=== PATIENT | female | born 1990 | race African-American/Black ===

== ENCOUNTER → 2016-08-25 | Outpatient (CLI) | payer OTHER ==
[~2016-08-25] MED LIST: ACET50TA PO; COLA100C PO; IBUP-1114 PO; IRON65TA PO; METHACHOLINE KIT (J7674) INH ONE; MOM30SS PO; PRE-TAB3 PO
== END ==
LOC: M CARPUL 08:12
PROVIDERS: ATTEND Nurse Practitioner Adult Health
DX: R06.02 Shortness of breath (principal)

== ENCOUNTER 2016-09-30 06:55 | Emergency (ER) | payer OTHER ==
[~2016-09-30 06:55] MED LIST changes: -METHACHOLINE KIT (J7674) INH ONE
--- NOTE | 2016-09-30 07:51 | REP ---
Clinical: Acute cough and fever . Comparison: None . Technique: PA and lateral. Findings: The mediastinum and cardiac silhouette are normal. The lung snowden are clear and without acute consolidation, effusion, or pneumothorax. The skeletal structures are intact and normal. Impression: 1. No acute cardiopulmonary process. Signed by Shan Avelar MD 09/30/2016 07:42 A
--- NOTE | 2016-09-30 08:11 | EDDOCDS ---
Nurse's Notes [facility] Name: Perri King Age: 25 yrs Sex: Female : 1990 Arrival Date: 09/30/2016 Time: 06:55 Bed I5 / M5 Private MD: Diagnosis: Fever presenting with conditions classified elsewhere-by history;Acute upper respiratory infection, unspecified Presentation: 09/30 07:00 Presenting complaint: Patient states: Body ache, headache, fatigue and cough began mlb1 yesterday. This patient has no additional risk factors. Adult Sepsis Screening: The patient does not have new or worsening altered mentation. Patient's respiratory rate is less than 22. Systolic blood pressure is greater than 100. Patient has a qSOFA score of 0- Negative Sepsis Screen. Suicide/Homicide risk assessment- the patient denies having any suicidal and/or homicidal ideations and does not present with any other emotional, behavioral or mental health complaints. 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 Transition of care: patient was not received from another setting of care. 07:00 Acuity: JERZY Level 4 mlb1 07:00 Method Of Arrival: Walkin/Carried/Asstd mlb1 Triage Assessment: 07:04 Headache History: This patient does not have a history of previous headaches. General: mlb1 Appears in no apparent distress, Behavior is appropriate for age, cooperative. Pain: Location: "all over" Pain currently is 5 out of 10 on a pain scale. Pain began 1 day ago. HIV screening NA for this visit Offered previously. Neurological: No deficits noted. 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 albuterol sulfate 2.5 mg /3 mL (0.083 %) Nebulizer nebu twice a day - PMHx: Asthma; - PSHx: none; - Social history: Smoking status: Patient states was never smoker of tobacco. No barriers to communication noted, The patient speaks fluent Portuguese, Speaks appropriately for age. - Family history: Not pertinent. - : The pt / caregiver states he / she is not on anticoagulants. Home medication list is obtained from the patient. - Exposure Risk Screening:: None identified. Screenin:09 Screening information is obtained from the patient. Fall risk: No risks identified. jc4 Assistance ADL's: requires no assistance with activities of daily living. Abuse/DV Screen: The patient / caregiver reports he/she is: not in a situation that causes fear, pain or injury. Nutritional screening: No deficits noted. Advance Directives: Currently, there is no health care proxy. There is no active DNR order. There is no living will. There is no Power of [employer] Sprayer. home support is adequate. Assessment: 08:08 General: Appears in no apparent distress. Pain: Pain currently is 5 out of 10 on a pain jc4 scale. Neurological: Level of Consciousness is awake, alert, Oriented to person, place, time. Respiratory: Airway is patent Respiratory effort is even, unlabored, Respiratory pattern is regular, symmetrical. Derm: Skin is pink, warm & dry. Vital Signs: 07:04 BP 115 / 74; Pulse 106; Resp 16; Temp 98.1(TE); Pulse Ox 97% on R/A; Weight 68.49 kg mlb1 (R); Height 5 ft. 6 in. (167.64 cm) (R); Pain 5/10; 08:10 BP 117 / 59; Pulse 108; Resp 20; Temp 98.8(O); Pulse Ox 98% on R/A; Pain 5/10; jc4 07:04 Body Mass Index 24.37 (68.49 kg, 167.64 cm) [facility] Vitals: 07:04 Log In Time: September 30, 2016 at 06:55. [facility] ED Course: 06:56 Patient visited by Arthur Emmanuel Reg. pm4 06:56 Patient moved to Waiting pm4 07:00 Patient visited by Giuliano Stewart, NINA. mlb1 07:03 Triage Initiated mlb1 07:05 Patient visited by Giuliano Stewart, RN. mlb1 07:05 Maria Dos Santos, RN is Primary Nurse. mlb1 07:05 Delores Funez,NINA is Primary Nurse. mlb1 07:05 Patient moved to I5 / M5 mlb1 07:06 Shanique Payne PA-C is PHCP. dt4 07:06 Ulysses Hoffman MD is Attending Physician. dt4 07:06 Patient visited by Shanique Payne PA-C. dt4 07:20 -Influenza A&B Rapid Antigen - Nose Sent. jc4 08:08 The patient / caregiver is instructed regarding the plan of care and ED course. jc4 08:09 No IV's were initiated during this patient's visit. No procedures done that require jc4 assistance. Order Results: Lab Order: -Influenza A&B Rapid Antigen - Nose; SPEC'M 09/30/16 07:16 Test: INFLUENZA A RAPID SCR by ICA; Value: INFLUENZA A RESULTS NEGATIVE; Status: F Test: INFLUENZA A RAPID SCR by ICA; Value: Comments:; Status: F Test: INFLUENZA B RAPID SCR by ICA; Value: INFLUENZA B RESULTS NEGATIVE; Status: F Test Note: ; The Influenza test is a direct rapid immunoassay for the qualitative detection of Influenza viral antigen. Cell culture (Viral Culture) testing should be considered to confirm NEGATIVE results and to assist in detecting other viruses that can provide similar clinical symptoms. Please contact the lab within 24 hours ([phone]) if confirmatory testing is desired. Outcome: 07:49 Discharge ordered by Provider. dt4 08:09 Discharge Assessment: Patient awake, alert and oriented x 3. No cognitive and/or jc4 functional deficits noted. Patient verbalized understanding of disposition instructions. patient administered narcotics - no. The following High Risk Discharge criteria are identified: None. Discharged to home ambulatory. Condition: stable. Discharge instructions given to patient, Instructed on discharge instructions, follow up and referral plans. medication usage, Demonstrated understanding of instructions, medications, Pt was receptive of discharge instructions/ teaching. No special radiology studies were completed. Property :Personal belongings accompany Pt. 08:10 Patient left the ED. jc4 Signatures: Giuliano Stewart RN RN mlb1 Maria Dos Santos RN RN jc4 Shanique Payne PA-C PAHuseyin dt4 Arthur Emmanuel, Reg Reg pm4 MTDD
--- NOTE | 2016-09-30 08:11 | EDDOCDS ---
Physician Documentation [facility] Name: Perri King Age: 25 yrs Sex: Female : 1990 Arrival Date: 09/30/2016 Time: 06:55 Bed I5 / M5 Private MD: Disposition: 09/30/16 07:49 Discharged to Home/Self Care. Impression: Fever presenting with conditions classified elsewhere - by history, Acute upper respiratory infection, unspecified. - Condition is Stable. - Discharge Instructions: Upper Respiratory Infection, Adult, Viral Infections. - Prescriptions for benzonatate 200 mg Oral Capsule - take 1 capsule by ORAL route 3 times per day As needed; 30 capsule. - Medication Reconciliation, Work Release Form - 1 day, Local Pharmacy Hours form. - Follow up: Emergency Department; When: As needed; Reason: Worsening of conditions. Follow up: Private Physician; When: 2 - 3 days; Reason: Wound/Symptom Recheck, Recheck today's complaints, Continuance of care. - Problem is new. - Symptoms are unchanged. Historical: - Allergies: no known allergies; - Home Meds: 1. albuterol sulfate 2.5 mg /3 mL (0.083 %) Nebulizer nebu twice a day - PMHx: Asthma; - PSHx: none; - Social history: Smoking status: Patient states was never smoker of tobacco. No barriers to communication noted, The patient speaks fluent Spanish, Speaks appropriately for age. - Family history: Not pertinent. - : The pt / caregiver states he / she is not on anticoagulants. Home medication list is obtained from the patient. - Exposure Risk Screening:: None identified. 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 6 in. (167.64 cm) (R); Pain 5/10; 08:10 BP 117 / 59; Pulse 108; Resp 20; Temp 98.8(O); Pulse Ox 98% on R/A; Pain 5/10; jc4 07:04 Body Mass Index 24.37 (68.49 kg, 167.64 cm) mlb1 MDM: 07:07 Obtain sample by nasopharyngeal swab ordered. dt4 07:07 -Influenza A&B Rapid Antigen - Nose Ordered. EDMS 07:11 Chest, 2 View (pa\E\lat) Ordered. EDMS 07:36 Financial registration complete. mm15 Signatures: Dispatcher [employer] EDAR Giuliano Stewart RN RN mlb1 Maria Dos Santos RN RN jc4 Pio Boykin mm15 Shanique Payne PA-C PA-C dt4 MTDD
--- NOTE | 2016-10-02 09:11 | EDDOCDS ---
Physician Documentation [facility] Name: Perri King Age: 25 yrs Sex: Female : 1990 Arrival Date: 09/30/2016 Time: 06:55 Bed I5 / M5 Private MD: Disposition: 09/30/16 07:49 Discharged to Home/Self Care. Impression: Fever presenting with conditions classified elsewhere - by history, Acute upper respiratory infection, unspecified. - Condition is Stable. - Discharge Instructions: Upper Respiratory Infection, Adult, Viral Infections. - Prescriptions for benzonatate 200 mg Oral Capsule - take 1 capsule by ORAL route 3 times per day As needed; 30 capsule. - Medication Reconciliation, Work Release Form - 1 day, Local Pharmacy Hours form. - Follow up: Emergency Department; When: As needed; Reason: Worsening of conditions. Follow up: Private Physician; When: 2 - 3 days; Reason: Wound/Symptom Recheck, Recheck today's complaints, Continuance of care. - Problem is new. - Symptoms are unchanged. Historical: - Allergies: no known allergies; - Home Meds: 1. albuterol sulfate 2.5 mg /3 mL (0.083 %) Nebulizer nebu twice a day - PMHx: Asthma; - PSHx: none; - Social history: Smoking status: Patient states was never smoker of tobacco. No barriers to communication noted, The patient speaks fluent Barbadian, Speaks appropriately for age. - Family history: Not pertinent. - : The pt / caregiver states he / she is not on anticoagulants. Home medication list is obtained from the patient. - Exposure Risk Screening:: None identified. 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 6 in. (167.64 cm) (R); Pain 5/10; 08:10 BP 117 / 59; Pulse 108; Resp 20; Temp 98.8(O); Pulse Ox 98% on R/A; Pain 5/10; jc4 07:04 Body Mass Index 24.37 (68.49 kg, 167.64 cm) mlb1 MDM: 07:07 Obtain sample by nasopharyngeal swab ordered. dt4 07:07 -Influenza A&B Rapid Antigen - Nose Ordered. EDMS 07:11 Chest, 2 View (pa\E\lat) Ordered. EDMS 07:36 Financial registration complete. mm15 08:18 [facility] Payment Agreement was scanned into [employer] and attached to record. lg 15:41 T-Sheet-- Draft Copy was scanned into [employer] and attached to record. gb Signatures: Dispatcher [employer] EDMS Keya Kerr, Reg Reg gb Micky Alexander, Reg Reg lg Giuliano Stewart RN RN mlb1 Maria Dos Santos, RN RN jc4 Pio Boykin mm15 Shanique Payne, MALAIKAC PA-C dt4 The chart was reviewed and I authenticate all verbal orders and agree with the evaluation and treatment provided.Attachments: 08:18 [facility] Payment Agreement lg 15:41 T-Sheet-- Draft Copy gb Chart Complete MTDD
--- NOTE | 2016-10-02 09:11 | EDDOCDS ---
Physician Documentation [facility] Name: Perri King Age: 25 yrs Sex: Female : 1990 Arrival Date: 09/30/2016 Time: 06:55 Bed I5 / M5 Private MD: Disposition: 09/30/16 07:49 Discharged to Home/Self Care. Impression: Fever presenting with conditions classified elsewhere - by history, Acute upper respiratory infection, unspecified. - Condition is Stable. - Discharge Instructions: Upper Respiratory Infection, Adult, Viral Infections. - Prescriptions for benzonatate 200 mg Oral Capsule - take 1 capsule by ORAL route 3 times per day As needed; 30 capsule. - Medication Reconciliation, Work Release Form - 1 day, Local Pharmacy Hours form. - Follow up: Emergency Department; When: As needed; Reason: Worsening of conditions. Follow up: Private Physician; When: 2 - 3 days; Reason: Wound/Symptom Recheck, Recheck today's complaints, Continuance of care. - Problem is new. - Symptoms are unchanged. Historical: - Allergies: no known allergies; - Home Meds: 1. albuterol sulfate 2.5 mg /3 mL (0.083 %) Nebulizer nebu twice a day - PMHx: Asthma; - PSHx: none; - Social history: Smoking status: Patient states was never smoker of tobacco. No barriers to communication noted, The patient speaks fluent Marshallese, Speaks appropriately for age. - Family history: Not pertinent. - : The pt / caregiver states he / she is not on anticoagulants. Home medication list is obtained from the patient. - Exposure Risk Screening:: None identified. 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 6 in. (167.64 cm) (R); Pain 5/10; 08:10 BP 117 / 59; Pulse 108; Resp 20; Temp 98.8(O); Pulse Ox 98% on R/A; Pain 5/10; jc4 07:04 Body Mass Index 24.37 (68.49 kg, 167.64 cm) mlb1 MDM: 07:07 Obtain sample by nasopharyngeal swab ordered. dt4 07:07 -Influenza A&B Rapid Antigen - Nose Ordered. EDMS 07:11 Chest, 2 View (pa\E\lat) Ordered. EDMS 07:36 Financial registration complete. mm15 08:18 [facility] Payment Agreement was scanned into [employer] and attached to record. lg 15:41 T-Sheet-- Draft Copy was scanned into [employer] and attached to record. gb Signatures: Dispatcher [employer] EDMS Keya Kerr, Reg Reg gb Micky Alexander, Reg Reg lg Giuliano Stewart RN RN mlb1 Maria Dos Santos, RN RN jc4 Pio Boykin mm15 Shanique Payne, MALAIKAC PA-C dt4 The chart was reviewed and I authenticate all verbal orders and agree with the evaluation and treatment provided.Attachments: 08:18 [facility] Payment Agreement lg 15:41 T-Sheet-- Draft Copy gb Chart Complete MTDD
--- NOTE | 2016-10-02 09:12 | EDDOCDS ---
Nurse's Notes [facility] Name: Perri King Age: 25 yrs Sex: Female : 1990 Arrival Date: 09/30/2016 Time: 06:55 Bed I5 / M5 Private MD: Diagnosis: Fever presenting with conditions classified elsewhere-by history;Acute upper respiratory infection, unspecified Presentation: 09/30 07:00 Presenting complaint: Patient states: Body ache, headache, fatigue and cough began mlb1 yesterday. This patient has no additional risk factors. Adult Sepsis Screening: The patient does not have new or worsening altered mentation. Patient's respiratory rate is less than 22. Systolic blood pressure is greater than 100. Patient has a qSOFA score of 0- Negative Sepsis Screen. Suicide/Homicide risk assessment- the patient denies having any suicidal and/or homicidal ideations and does not present with any other emotional, behavioral or mental health complaints. 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 Transition of care: patient was not received from another setting of care. 07:00 Acuity: JERZY Level 4 mlb1 07:00 Method Of Arrival: Walkin/Carried/Asstd mlb1 Triage Assessment: 07:04 Headache History: This patient does not have a history of previous headaches. General: mlb1 Appears in no apparent distress, Behavior is appropriate for age, cooperative. Pain: Location: "all over" Pain currently is 5 out of 10 on a pain scale. Pain began 1 day ago. HIV screening NA for this visit Offered previously. Neurological: No deficits noted. 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 albuterol sulfate 2.5 mg /3 mL (0.083 %) Nebulizer nebu twice a day - PMHx: Asthma; - PSHx: none; - Social history: Smoking status: Patient states was never smoker of tobacco. No barriers to communication noted, The patient speaks fluent Yakut, Speaks appropriately for age. - Family history: Not pertinent. - : The pt / caregiver states he / she is not on anticoagulants. Home medication list is obtained from the patient. - Exposure Risk Screening:: None identified. Screenin:09 Screening information is obtained from the patient. Fall risk: No risks identified. jc4 Assistance ADL's: requires no assistance with activities of daily living. Abuse/DV Screen: The patient / caregiver reports he/she is: not in a situation that causes fear, pain or injury. Nutritional screening: No deficits noted. Advance Directives: Currently, there is no health care proxy. There is no active DNR order. There is no living will. There is no Power of Public Works Laborer. home support is adequate. Assessment: 08:08 General: Appears in no apparent distress. Pain: Pain currently is 5 out of 10 on a pain jc4 scale. Neurological: Level of Consciousness is awake, alert, Oriented to person, place, time. Respiratory: Airway is patent Respiratory effort is even, unlabored, Respiratory pattern is regular, symmetrical. Derm: Skin is pink, warm & dry. Vital Signs: 07:04 BP 115 / 74; Pulse 106; Resp 16; Temp 98.1(TE); Pulse Ox 97% on R/A; Weight 68.49 kg mlb1 (R); Height 5 ft. 6 in. (167.64 cm) (R); Pain 5/10; 08:10 BP 117 / 59; Pulse 108; Resp 20; Temp 98.8(O); Pulse Ox 98% on R/A; Pain 5/10; jc4 07:04 Body Mass Index 24.37 (68.49 kg, 167.64 cm) [facility] Vitals: 07:04 Log In Time: September 30, 2016 at 06:55. [facility] ED Course: 06:56 Patient visited by Arthur Emmanuel Reg. pm4 06:56 Patient moved to Waiting pm4 07:00 Patient visited by Giuliano Stewart, NINA. mlb1 07:03 Triage Initiated mlb1 07:05 Patient visited by Giuliano Stewart, RN. mlb1 07:05 Maria Dos Santos, RN is Primary Nurse. mlb1 07:05 Delores Funez,NINA is Primary Nurse. mlb1 07:05 Patient moved to I5 / M5 mlb1 07:06 Shanique Payne PA-C is PHCP. dt4 07:06 Ulysses Hoffmna MD is Attending Physician. dt4 07:06 Patient visited by Shanique Payne PA-C. dt4 07:20 -Influenza A&B Rapid Antigen - Nose Sent. jc4 08:08 The patient / caregiver is instructed regarding the plan of care and ED course. jc4 08:09 No IV's were initiated during this patient's visit. No procedures done that require jc4 assistance. 08:18 [facility] Payment Agreement was scanned into [employer] and attached to record. 08:19 Chest, 2 View (pa\\E\\lat) Returned. EDMS 15:41 T-Sheet-- Draft Copy was scanned into [employer] and attached to record. gb Order Results: Lab Order: -Influenza A&B Rapid Antigen - Nose; SPEC'M 09/30/16 07:16 Test: INFLUENZA A RAPID SCR by ICA; Value: INFLUENZA A RESULTS NEGATIVE; Status: F Test: INFLUENZA A RAPID SCR by ICA; Value: Comments:; Status: F Test: INFLUENZA B RAPID SCR by ICA; Value: INFLUENZA B RESULTS NEGATIVE; Status: F Test Note: ; The Influenza test is a direct rapid immunoassay for the qualitative detection of Influenza viral antigen. Cell culture (Viral Culture) testing should be considered to confirm NEGATIVE results and to assist in detecting other viruses that can provide similar clinical symptoms. Please contact the lab within 24 hours ([phone]) if confirmatory testing is desired. Radiology Order: Chest, 2 View (pa\\E\\lat) Test: Chest, 2 View (pa\\E\\lat) REASON FOR EXAMINATION: cough, fever; Clinical: Acute cough and fever .; ; Comparison: None .; ; Technique: PA and lateral.; ; Findings:; The mediastinum and cardiac silhouette are normal. The lung snowden are clear and; without acute consolidation, effusion, or pneumothorax. The skeletal structures; are intact and normal.; ; Impression:; 1. No acute cardiopulmonary process.; ; ; Signed by; Shan Avelar MD 09/30/2016 07:42 A; Outcome: 07:49 Discharge ordered by Provider. dt4 08:09 Discharge Assessment: Patient awake, alert and oriented x 3. No cognitive and/or jc4 functional deficits noted. Patient verbalized understanding of disposition instructions. patient administered narcotics - no. The following High Risk Discharge criteria are identified: None. Discharged to home ambulatory. Condition: stable. Discharge instructions given to patient, Instructed on discharge instructions, follow up and referral plans. medication usage, Demonstrated understanding of instructions, medications, Pt was receptive of discharge instructions/ teaching. No special radiology studies were completed. Property :Personal belongings accompany Pt. 08:10 Patient left the ED. jc4 Signatures: Dispatcher [employer] EDMS Keya Kerr, Reg Reg gb Micky Alexander, Reg Reg lg Terry, Giuliano Harvey RN RN mlb1 Maria Dos Santos RN RN jc4 Shanique Payne, LILO NAGY dt4 Arthur Emmanuel, Reg Reg pm4 Chart Complete MTDD
== END 2016-09-30 08:10 | disposition home or self-care (01) ==
LOC: M ED 06:55
DX: J06.9 Acute upper respiratory infection, unspecified (principal); J45.909 Unspecified asthma, uncomplicated

== ENCOUNTER 2017-03-28 06:51 | Emergency (ER) | payer OTHER ==
[~2017-03-28] VITALS: Ht 162.6 cm; Wt 65.0 kg
[~2017-03-28 06:51] MED LIST changes: -COLA100C PO; +COLA100C5 PO
[2017-03-28 06:54] VITALS: BP 128/81
[2017-03-28] MEDS ORDERED: PROAAER10 (06:58)
[2017-03-28] MEDS ORDERED: NUVAMIS2 (06:58)
[2017-03-28] MEDS ORDERED: PRED10TA2 PO (07:48)
[2017-03-28] MEDS ORDERED: diphenhydrAMINE 50 MG CAP PO ONE (08:00)
[2017-03-28] MEDS ORDERED: predniSONE 20 MG TAB PO ONE (08:00)
== END 2017-03-28 08:09 | disposition home or self-care (01) ==
LOC: M ED 06:51
DX: S00.561A Insect bite (nonvenomous) of lip, initial encounter (principal); T78.40XA Allergy, unspecified, initial encounter; W57.XXXA Bitten or stung by nonvenomous insect and other nonvenomous arthropods, initial encounter; L29.9 Pruritus, unspecified; R21 Rash and other nonspecific skin eruption; L50.9 Urticaria, unspecified; Y92.9 Unspecified place or not applicable; Y93.84 Activity, sleeping; Y99.9 Unspecified external cause status; J45.909 Unspecified asthma, uncomplicated; D57.3 Sickle-cell trait; Z79.899 Other long term (current) drug therapy; Z91.038 Other insect allergy status; Z91.018 Allergy to other foods

== ENCOUNTER 2017-04-21 08:09 | Emergency (ER) | payer OTHER ==
[~2017-04-21] VITALS: Ht 167.6 cm; Wt 65.9 kg
[~2017-04-21 08:09] MED LIST changes: +NUVAMIS2; +PRED10TA2 PO; +PROAAER10
[2017-04-21] MEDS ORDERED: ACETAMINOPHEN TAB 650MG DOSE (2X325MG) PO ONE (09:00)
[2017-04-21 09:44] LABS: CONTROL LINE HCG INT CTR LINE PRESENT
--- NOTE | 2017-04-21 10:27 | REP ---
CT Head without contrast HISTORY: Trauma COMPARISON: None There is no intraparenchymal hemorrhage, acute infarct, mass or midline shift. The ventricular system is normal in appearance. There is no extra cerebral collection. There is no fracture. The visualized sinuses are clear. IMPRESSION: There is no intracranial lesion. Signed by Kelby Faye MD 04/21/2017 10:19 A
--- NOTE | 2017-04-21 10:42 | REP ---
CT cervical spine without contrast HISTORY: Trauma COMPARISON: None There is no acute fracture or subluxation. There is no disc bulge or herniation. The spinal canal and neural foramina are patent. The intervertebral discs and vertebral bodies are normal in height. IMPRESSION: There is no acute fracture or subluxation. Signed by Kelby Faye MD 04/21/2017 10:33 A
--- NOTE | 2017-04-21 10:44 | REP ---
MAXILLOFACIAL CT WITHOUT CONTRAST: HISTORY: Trauma. Minimal mucosal thickening is present in the right maxillary sinus. The remaining sinuses are clear. The ostiomeatal units are patent. The middle and inferior nasal turbinates are partially paradoxical. There is savannah bullosa of the middle nasal turbinates. There is minimal deviation of the nasal septum to the right. The nasal septum abuts the right middle nasal turbinate. The cribriform plate, medial jaramillo of the orbits and optic canals are intact. The carotid canals form a segment of the posterolateral jaramillo of the sphenoid sinus. The left sphenoid sinus septum inserts into the left internal carotid canal wall. There is no fracture. Minimal soft tissue swelling is present over the left orbit. IMPRESSION: Sinus mucosal thickening as described above. Signed by Kelby Faye MD 04/21/2017 11:00 A
--- NOTE | 2017-04-21 10:46 | REP ---
Lumbar spine series: Five views. History: Trauma. Findings: Five views of the lumbar spine show preserved vertebral body heights. Alignment is normal. Disc spaces are maintained. Pedicles and posterior elements appear intact. No fracture or collapse is seen. No evidence of spondylolysis or spondylolisthesis. Sacrum and SI joints are intact. Psoas margins appear symmetric. Impression: Negative lumbar spine radiographs. Signed by Les Romero MD 04/21/2017 01:41 P
[2017-04-21] MEDS ORDERED: IBUP-1022 PO (11:09)
[2017-04-21 11:20] VITALS: BP 122/75
== END 2017-04-21 11:22 | disposition home or self-care (01) ==
LOC: M ED 08:09
DX: S00.83XA Contusion of other part of head, initial encounter (principal); S00.81XA Abrasion of other part of head, initial encounter; S29.012A Strain of muscle and tendon of back wall of thorax, initial encounter; W10.9XXA Fall (on) (from) unspecified stairs and steps, initial encounter; Y92.099 Unspecified place in other non-institutional residence as the place of occurrence of the external cause; Y93.9 Activity, unspecified; Y99.9 Unspecified external cause status; J45.909 Unspecified asthma, uncomplicated; Z79.3 Long term (current) use of hormonal contraceptives; Z79.899 Other long term (current) drug therapy; Z91.018 Allergy to other foods; Z91.89 Other specified personal risk factors, not elsewhere classified

== ENCOUNTER 2017-11-26 09:05 | Emergency (ER) | payer OTHER ==
[2017-11-26] MEDS: METOCLOPRAMIDE INJ 10MG/2ML VIAL (J2765) IV (10:00)
[2017-11-26] MEDS: NS 1,000 ML IV (10:00)
[2017-11-26 10:53] LABS: BASO # 0.1 10^3/uL (0.0-0.2); BASO % 0.5 % (0.0-1.0); EOS # 0.2 10^3/uL (0.0-0.50); EOS % 1.3 % (0.0-3.0); HEMATOCRIT 36.2 % (36.0-47.0); HEMOGLOBIN 11.4 g/dl (12.0-15.5); IMMATURE GRANULOCYTE % 0.4 % (0-3.0); LYMPH # 3.1 10^3/uL (1.5-6.5); LYMPH % 24.7 % (24.0-44.0); MEAN CORPUSCULAR HEMOGLOBIN 28.3 pg (27.0-33.0); MEAN CORPUSCULAR HGB CONC 31.5 g/dl (32.0-36.5); MEAN CORPUSCULAR VOLUME 89.8 fl (80.0-96.0); MONO # 0.9 10^3/uL (0.0-0.8); MONO % 7.6 % (0.0-5.0); NEUTROPHILS # 8.2 10^3/uL (1.8-7.7); NEUTROPHILS % 65.5 % (36.0-66.0); PLATELET COUNT, AUTOMATED 258 10^3/uL (150-450); RED BLOOD COUNT 4.03 10^6/uL (4.00-5.40); RED CELL DISTRIBUTION WIDTH 13.6 % (11.5-14.5); WHITE BLOOD COUNT 12.4 10^3/uL (4.0-10.0)
[2017-11-26 11:07] LABS: KETONE, URINE AUTO RFX NEGATIVE (NEGATIVE); LEUKOCYTE ESTERASE UR AUTO RFX NEGATIVE (NEGATIVE); MUCUS, URINE RFX SMALL (NEGATIVE); NITRITE, URINE AUTO RFX NEGATIVE (NEGATIVE); RBC, URINE AUTO RFX 6 /HPF (0-3); SPECIFIC GRAVITY UR AUTO RFX 1.018 (1.002-1.035); SQUAM EPITHELIAL CELL UR AURFX 1 /HPF (0-6); WBC, URINE AUTO RFX 1 /HPF (0-3)
[2017-11-26 11:14] LABS: ALBUMIN 3.1 GM/DL (3.2-5.2); ALBUMIN/GLOBULIN RATIO 0.91 (1.00-1.93); ALKALINE PHOSPHATASE 57 U/L (45-117); ALT/SGPT 16 U/L (12-78); AMYLASE 53 U/L (25-115); ANION GAP 5 MEQ/L (8-16); AST/SGOT 13 U/L (7-37); BILIRUBIN,DIRECT < 0.1 MG/DL (0.0-0.2); BILIRUBIN,TOTAL 0.4 MG/DL (0.2-1.0); BLOOD UREA NITROGEN 5 MG/DL (7-18); CALCIUM LEVEL 8.2 MG/DL (8.5-10.1); CARBON DIOXIDE LEVEL 26 MEQ/L (21-32); CHLORIDE LEVEL 109 MEQ/L (98-107); CREATININE FOR GFR 0.58 MG/DL (0.55-1.30); GLOMERULAR FILTRATION RATE > 60.0 (>60); GLUCOSE, FASTING 79 MG/DL (70-100); LIPASE 103 U/L (73-393); POTASSIUM SERUM 3.7 MEQ/L (3.5-5.1); SODIUM LEVEL 140 MEQ/L (136-145); TOTAL PROTEIN 6.5 GM/DL (6.4-8.2)
== END 2017-11-26 12:06 | disposition home or self-care (01) ==
LOC: M ED 09:05
DX: O21.9 Vomiting of pregnancy, unspecified (principal); O99.011 Anemia complicating pregnancy, first trimester; D57.3 Sickle-cell trait; Z3A.08 8 weeks gestation of pregnancy
CPT/HCPCS: J2765

== ENCOUNTER 2018-04-13 13:53 | Outpatient (CLI) | payer OTHER | END 2018-04-13 15:00 | disposition home or self-care (01) | LOC: M LDO 13:53 | DX: O26.893 Other specified pregnancy related conditions, third trimester (principal); N89.8 Other specified noninflammatory disorders of vagina; O47.03 False labor before 37 completed weeks of gestation, third trimester; Z3A.28 28 weeks gestation of pregnancy | CPT/HCPCS: 76815 ==

== ENCOUNTER 2018-06-21 09:24 | Outpatient (CLI) | payer OTHER | END 2018-06-21 10:27 | disposition home or self-care (01) | LOC: M LDO 09:24 | DX: O47.1 False labor at or after 37 completed weeks of gestation (principal); Z3A.38 38 weeks gestation of pregnancy | CPT/HCPCS: 59025 ==

== ENCOUNTER 2018-06-27 22:48 | Outpatient (CLI) | payer OTHER | END 2018-06-28 01:15 | disposition home or self-care (01) | LOC: M LDO 22:48 | DX: O26.893 Other specified pregnancy related conditions, third trimester (principal); R10.30 Lower abdominal pain, unspecified; O47.1 False labor at or after 37 completed weeks of gestation; Z3A.39 39 weeks gestation of pregnancy | CPT/HCPCS: 59025 ==

== ENCOUNTER 2018-07-02 04:56 | Inpatient (IN) | payer OTHER ==
[2018-07-02] MEDS ORDERED: LR 1,000 ML IV (05:04)
[2018-07-02] MEDS ORDERED: LACTATED RINGER'S 1000 ML IV ×2 (05:15→08:15)
[2018-07-02 05:40] LABS: HEMATOCRIT 36.7 % (36.0-47.0); HEMOGLOBIN 11.6 g/dl (12.0-15.5); MEAN CORPUSCULAR HEMOGLOBIN 28.4 pg (27.0-33.0); MEAN CORPUSCULAR HGB CONC 31.6 g/dl (32.0-36.5); MEAN CORPUSCULAR VOLUME 89.7 fl (80.0-96.0); PLATELET COUNT, AUTOMATED 297 10^3/uL (150-450); RED BLOOD COUNT 4.09 10^6/uL (4.00-5.40); RED CELL DISTRIBUTION WIDTH 13.8 % (11.5-14.5); WHITE BLOOD COUNT 14.3 10^3/uL (4.0-10.0)
[2018-07-02] MEDS ORDERED: FENTANYL 2MCG/ML ROPIVACAINE 0.2% IN 0.9% NACL 200ML IVBAG As Ordered (06:17)
[2018-07-02] MEDS ORDERED: ePHEDrine SULFATE 25 MG/5 ML(5MG/ML) SYRINGE IV (08:15)
[2018-07-02] MEDS ORDERED: EPIDURAL/PCA KEYS XX (08:15)
[2018-07-02] MEDS ORDERED: ONDANSETRON 4MG/2ML VIAL (J2405) IV ×2 (08:15→10:30)
[2018-07-02] MEDS ORDERED: REFRIGERATOR IV KEYS XX (08:15)
[2018-07-02] MEDS: FENTANYL/ROPIVACAINE/NACL BAG 200 ML EPIDURAL (08:15)
[2018-07-02] MEDS ORDERED: NALOXONE INJ 0.4 MG/1 ML VIAL (J2310) IV (08:15)
[2018-07-02] MEDS ORDERED: EPIDURAL COMMENT XX (08:15)
[2018-07-02] MEDS ORDERED: diphenhydrAMINE INJ 50MG/ML VIAL (J1200) IV (08:15)
[2018-07-02] MEDS: PRENATAL VITAMINS CHEWABLE TABLET PO (09:00)
[2018-07-02] MEDS: OXYTOCIN DRIP 30 UNITS in APPROPRIATE DILUENT 1 EA IV (10:17)
[2018-07-02] MEDS ORDERED: RHOGAM 300 MCG (1500 IU) INJ (J2790) IM (10:30)
[2018-07-02] MEDS ORDERED: MEASLES,MUMPS,RUBELLA VACCINE INJ (MMR-II) (90707) SC (10:30)
[2018-07-02] MEDS ORDERED: DIBUCAINE 1% OINTMENT 30GM TOP (10:30)
[2018-07-02] MEDS ORDERED: ACETAMINOPHEN 500 MG TAB PO (10:30)
[2018-07-02] MEDS: IBUPROFEN 800 MG TAB PO (14:28)
[2018-07-02] MEDS ORDERED: OXYTOCIN INJ 10 UNITS/ML VIAL (J2590) As Ordered (15:32)
[2018-07-03] MEDS: IBUPROFEN 800 MG TAB PO (02:00)
[2018-07-03] MEDS: DOCUSATE SODIUM 100 MG CAP PO (02:00)
[2018-07-03] MEDS: PRENATAL VITAMINS CHEWABLE TABLET PO (10:01)
== END 2018-07-03 12:00 | disposition home or self-care (01) | DRG 807 ==
LOC: M LDO 04:56 → M LDI 05:05 → M OBS 13:01
PROVIDERS: Obstetrics & Gynecology
PROC: 10E0XZZ Delivery of Products of Conception, External Approach (ICD-10-PCS; principal; 2018-07-02)
PROC: 10907ZC Drainage of Amniotic Fluid, Therapeutic from Products of Conception, Via Natural or Artificial Opening (ICD-10-PCS; 2018-07-02)
DX: O48.0 Post-term pregnancy (principal); Z37.0 Single live birth; Z3A.40 40 weeks gestation of pregnancy; O77.0 Labor and delivery complicated by meconium in amniotic fluid; Z91.018 Allergy to other foods; Z91.038 Other insect allergy status

== ENCOUNTER → 2018-12-28 | Outpatient (REF) | payer OTHER ==
[~2018-12-28] MED LIST changes: +ACET1TAB55 PO; -ACET50TA PO; +ADV250INH INH; +IBUP-1022 PO; +MAPA500T2 PO; +REGL10TA6 PO; +RIGHTAB2; +UNIS25TA3; +VITAMIN
[2018-12-29 12:11] LABS: URINE PREG TEST NEGATIVE (NEGATIVE)
[2018-12-29 12:40] LABS: AMORPHOUS SEDIMENT SMALL (NEGATIVE); APPEARANCE, URINE TURBID (CLEAR); BACTERIA, URINE AUTO NEGATIVE (NEGATIVE); BILIRUBIN, URINE AUTO NEGATIVE (NEGATIVE); BLOOD, URINE BLOOD 2+ (NEGATIVE); CALCIUM OXALATE CRYSTALS SMALL; COLOR, URINE YELLOW (YELLOW); GLUCOSE, URINE (UA) AUTO NEGATIVE (NEGATIVE); KETONE, URINE AUTO NEGATIVE (NEGATIVE); LEUKOCYTE ESTERASE, URINE AUTO TRACE (NEGATIVE); NITRITE, URINE AUTO NEGATIVE (NEGATIVE); PROTEIN, URINE AUTO NEGATIVE (NEGATIVE); RBC, URINE AUTO 19 /HPF (0-3); SPECIFIC GRAVITY URINE AUTO 1.031 (1.002-1.035); SQUAMOUS EPITHELIAL CELL UR AU 13 /HPF (0-6); WBC, URINE AUTO 4 /HPF (0-3)
== END ==
LOC: M SFHCLERA 18:48
PROVIDERS: ATTEND Nurse Practitioner Family
DX: N89.8 Other specified noninflammatory disorders of vagina (principal)
CPT/HCPCS: 81001; 81002; 81025; 84703; 87070; G0463

== ENCOUNTER 2019-01-30 17:38 | Emergency (ER) | payer OTHER ==
[~2019-01-30] VITALS: Ht 165.1 cm; Wt 78.2 kg
[2019-01-30] MEDS ORDERED: CYCL10TA PO (21:42)
[2019-01-30] MEDS ORDERED: ACETAMINOPHEN TAB 650MG DOSE (2X325MG) PO ONE (21:45)
[2019-01-30 21:57] VITALS: BP 120/73
== END 2019-01-30 21:57 | disposition home or self-care (01) ==
LOC: M ED 17:38
DX: S29.012A Strain of muscle and tendon of back wall of thorax, initial encounter (principal); X58.XXXA Exposure to other specified factors, initial encounter; Y92.89 Other specified places as the place of occurrence of the external cause; D55.0 Anemia due to glucose-6-phosphate dehydrogenase [G6PD] deficiency; Z97.5 Presence of (intrauterine) contraceptive device